=== PATIENT | male | born 1990 | race Caucasian/White ===

== ENCOUNTER 2018-04-05 21:16 | Emergency (ER) | payer SELFPAY ==
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
== END 2018-04-05 22:28 | disposition home or self-care (01) ==
LOC: ER 21:16
DX: S00.01XA Abrasion of scalp, initial encounter (principal); V47.5XXA Car driver injured in collision with fixed or stationary object in traffic accident, initial encounter; Y92.415 Exit ramp or entrance ramp of street or highway as the place of occurrence of the external cause
CPT/HCPCS: 70450; 99283